=== PATIENT | female | born 1990 | race Caucasian/White ===

== ENCOUNTER 2017-02-07 18:26 | Emergency (ER) | payer OTHER ==
[~2017-02-07] VITALS: Ht 160 cm; Wt 52.2 kg
[~2017-02-07 18:26] MED LIST: CITALOPRAM HBR20 MG PO; EXCEDRIN MIGRA1 EAC2 PO; GABAPENTIN300 MG PO
[2017-02-07] MEDS ORDERED: KEFLEX500 MG PO (21:23)
[2017-02-07] MEDS ORDERED: TRAMADOL HCL50 MG PO (21:23)
== END 2017-02-07 22:07 | disposition home or self-care (01) ==
LOC: ED 18:26
DX: N12 Tubulo-interstitial nephritis, not specified as acute or chronic (principal); Z88.5 Allergy status to narcotic agent
CPT/HCPCS: 74177; 80053; 81001; 83690; 84703; 85025; 87077; 87088; 87186; 96361; 96374; 96375; 99284; J0696; J1170; J2405; J7030; Q9967

== ENCOUNTER 2017-12-22 22:58 | Inpatient (IN) | payer OTHER ==
[~2017-12-22] VITALS: Ht 160 cm; Wt 70.0 kg
[~2017-12-22 22:58] MED LIST changes: +KEFLEX500 MG PO; +TRAMADOL HCL50 MG PO
[2017-12-23] MEDS ORDERED: BUSPIRONE HCL5 GM PO (00:12)
--- NOTE | 2017-12-23 07:45 | PR ---
[facility] [address] [facility] [place], [place] [address] Signed Progress Notes IP Datetime Report Generated by SARKIS: 12/23/2017 07:45 PROGRESS NOTES: [id number] Impression: Normal progression of labor; Reassuring heart rate Procedures: Sterile Vag Exam Plan: Continue present management; Anesthesia consult VITAL SIGNS: [id number] Vital Signs: Reviewed; Within Normal Limits EXAM: [id number] Dilatation: 4.0 Effacement: 90 Station: -2 Uterine Contractions: q 1 to 4 min MEMBRANES: [id number] Membrane Status: Ruptured Amniotic Fluid Color: Clear Comments: Progressing and becoming more uncomfortable. Epidural requested. Fetus A: [id number] FHR Baseline: 140 Variability: Moderate 6-25bpm Accelerations: 10X10 Decelerations: Early; Variable FHR Category: Category II Presentation: Vertex Comments on Fetus A: overall reassuring but will continue close observation Fetus B: [id number] Signing Physician: Yumiko Pickering MD Copies: ~ *Electronically Signed* 12/23/17 0745 YUMIKO PICKERING MD PATIENT NAME: JH RODRIGUEZ PROGRESS NOTE DATE OF : [birth year] PHYSICIAN: YUMIKO PICKERING MD RPT #: [id number] REPORT IS CONFIDENTIAL AND NOT TO BE RELEASED WITHOUT AUTHORIZATION
--- NOTE | 2017-12-23 11:40 | PR ---
[facility] [address] [facility] [place], [place] [address] Signed Progress Notes IP Datetime Report Generated by SARKIS: 12/23/2017 11:40 PROGRESS NOTES: [id number] Impression: Normal progression of labor Procedures: Sterile Vag Exam Plan: Continue present management VITAL SIGNS: [id number] Vital Signs: Reviewed; Within Normal Limits EXAM: [id number] Dilatation: 5.0 Effacement: 90 Station: -2 Uterine Contractions: q 2 to 5 min MEMBRANES: [id number] Membrane Status: Ruptured Amniotic Fluid Color: Clear Comments: Comfortable after 2nd epidural. Progressing. Will continue. Fetus A: [id number] FHR Baseline: 145 Variability: Moderate 6-25bpm Accelerations: 10X10 Decelerations: Early; Variable FHR Category: Category II Presentation: Vertex Comments on Fetus A: overall reassuring but will continue close observation Fetus B: [id number] Signing Physician: Yumiko iPckering MD Copies: ~ *Electronically Signed* 12/23/17 1140 YUMIKO PICKERING MD PATIENT NAME: JH RODRIGUEZ PROGRESS NOTE DATE OF : [birth year] PHYSICIAN: YUMIKO PICKERING MD RPT #: [id number] REPORT IS CONFIDENTIAL AND NOT TO BE RELEASED WITHOUT AUTHORIZATION
--- NOTE | 2017-12-24 08:34 | PR ---
[facility] [address] [facility] [place], [place] [address] Signed PP Progress Notes Datetime Report Generated by CPN: 12/24/2017 08:34 SUBJECTIVE: [id number] Pain: Within normal limits Vital Signs: [id number] Vital Signs: Reviewed; Within Normal Limits EXAM: [id number] Cardiovascular: Not Done Respiratory: Not Done Abdomen/Uterus: Abnormal Lochia: Normal Vulva/Perineum: Not Done Breasts: Not Done CVA Tenderness: Not Done Extremities: Normal Incision: Not Applicable Progress: Normal Exam Comments: Fundus firm, NT @ U-1. H/H 12.3/37.7, WBC 22.1, plat 187k IMPRESSION/PLAN/PROCEDURES: [id number] Impression: Normal progression Plan: Continue present management Progress Notes: Doing well. Will continue present regimen. Signing Physician: Yumiko Pickering MD Copies: ~ *Electronically Signed* 12/24/17 0834 YUMIKO PICKERING MD PATIENT NAME: JH RODRIGUEZ PROGRESS NOTE DATE OF : [birth year] PHYSICIAN: YUMIKO PICKERING MD RPT #: [id number] REPORT IS CONFIDENTIAL AND NOT TO BE RELEASED WITHOUT AUTHORIZATION
--- NOTE | 2017-12-25 08:25 | PR ---
[facility] [address] [facility] [place], [place] [address] Signed PP Progress Notes Datetime Report Generated by CPN: 12/25/2017 08:25 SUBJECTIVE: [id number] Pain: Within normal limits Vital Signs: [id number] Vital Signs: Reviewed; Within Normal Limits EXAM: [id number] Cardiovascular: Not Done Respiratory: Not Done Abdomen/Uterus: Abnormal Lochia: Normal Vulva/Perineum: Not Done Breasts: Not Done CVA Tenderness: Not Done Extremities: Normal Incision: Not Applicable Progress: Normal Exam Comments: Fundus firm, NT @ U-1. IMPRESSION/PLAN/PROCEDURES: [id number] Impression: Normal progression Plan: Discharge Procedures: Rhogam Progress Notes: Doing well. She is ready for D/C. Signing Physician: Yumiko Pickering MD Copies: ~ *Electronically Signed* 12/25/17824 YUMIKO PICKERING MD PATIENT NAME: JH RODRIGUEZ PROGRESS NOTE DATE OF : 91 PHYSICIAN: YUMIKO PICKERING MD RPT #: [id number] REPORT IS CONFIDENTIAL AND NOT TO BE RELEASED WITHOUT AUTHORIZATION
== END 2017-12-25 10:50 | disposition home or self-care (01) | DRG 775 ==
LOC: FBCO 22:58 → FBC 12-23 03:07
PROVIDERS: ADMIT Obstetrics & Gynecology
PROC: 10E0XZZ Delivery of Products of Conception, External Approach (ICD-10-PCS; principal; 2017-12-23)
PROC: 0UQMXZZ Repair Vulva, External Approach (ICD-10-PCS; 2017-12-23)
PROC: 0UQGXZZ Repair Vagina, External Approach (ICD-10-PCS; 2017-12-23)
DX: O76 Abnormality in fetal heart rate and rhythm complicating labor and delivery (principal); O71.4 Obstetric high vaginal laceration alone; Z3A.40 40 weeks gestation of pregnancy; Z37.0 Single live birth; O71.82 Other specified trauma to perineum and vulva; O26.893 Other specified pregnancy related conditions, third trimester; Z67.91 Unspecified blood type, Rh negative
CPT/HCPCS: 01960; 59025; 83030; 85027; 86850; 86900; 86901; 96361; 99213; J2550; J2590; J2790; J3010; J7120

== ENCOUNTER 2020-09-01 10:49 | Emergency (ER) | payer OTHER ==
[~2020-09-01] VITALS: Ht 160 cm; Wt 69.4 kg
[~2020-09-01 10:49] MED LIST changes: +BUSPIRONE HCL5 GM PO
[2020-09-01] MEDS ORDERED: HEMAX TABLET1 EACH PO (11:08)
== END 2020-09-01 13:45 | disposition home or self-care (01) ==
LOC: ED 10:49
DX: O20.9 Hemorrhage in early pregnancy, unspecified (principal); Z3A.01 Less than 8 weeks gestation of pregnancy; Z87.891 Personal history of nicotine dependence; Z88.5 Allergy status to narcotic agent
CPT/HCPCS: 76801; 76817; 80053; 81001; 84702; 84703; 85025; 99284-25; J7030

== ENCOUNTER 2021-06-09 05:10 | Inpatient (IN) | payer OTHER ==
[~2021-06-09] VITALS: Ht 160 cm; Wt 73.9 kg
[~2021-06-09 05:10] MED LIST changes: +HEMAX TABLET1 EACH PO
--- NOTE | 2021-06-09 05:43 | NUR ---
IN-HOUSE COVID SWAB DONE TO BOTH NARES.
--- NOTE | 2021-06-09 10:06 | PR ---
[facility] [address] [facility] [place], [place] [address] Signed Progress Notes IP Datetime Report Generated by CPN: 06/09/2021 10:06 PROGRESS NOTES: [id number] Impression: Reassuring Heart Rate Procedures: Scalp Electrode Plan: Continue Present Management VITAL SIGNS: [id number] Vital Signs: Reviewed; Within Normal Limits EXAM: [id number] Dilatation: 3.0 Effacement: 70 Station: -2 Contractions: rare MEMBRANES: [id number] Membranes Status: Ruptured Comments: Pt doing well, comfortable with epidural, feeling pressure but no pain with contractions FHR tracing broken, FSE placed without difficulty with pt's consent Discussed may possibly need IUPC for titration of pitocin, pt agreeable if necessary. Continue with pitocin FETUS A: [id number] FHR Baseline: 125 Variability: Moderate 6-25bpm Accelerations: None FHR Category: Category I Presentation: Vertex Comments on Fetus A: No evidence of acidemia FETUS B: [id number] Signing Physician: Matthew Delvalle DO Copies: ~ *Electronically Signed* 06/09/21 1006 MATTHEW DELVALLE DO PATIENT NAME: MEDGIN,JH RENNEE PROGRESS NOTE DATE OF : 89 PHYSICIAN: MATTHEW DELVALLE DO RPT #: [id number] REPORT IS CONFIDENTIAL AND NOT TO BE RELEASED WITHOUT AUTHORIZATION
--- NOTE | 2021-06-09 15:04 | PR ---
[facility] [address] [facility] [place], [place] [address] Signed Progress Notes IP Datetime Report Generated by CPN: 06/09/2021 15:04 PROGRESS NOTES: [id number] Impression: Reassuring Heart Rate Procedures: Intrauterine Pressure Catheter Plan: Continue Present Management VITAL SIGNS: [id number] Vital Signs: Reviewed; Within Normal Limits EXAM: [id number] Dilatation: 5.0 Effacement: 70 Station: -2 Contractions: rare MEMBRANES: [id number] Membranes Status: Ruptured Comments: Minimal progression, IUPC placed without difficulty Continue pitocin See anesthesia notes re: epidural and BP control Continue pain mgmt per lamp stack developer FETUS A: [id number] FHR Baseline: 125 Variability: Moderate 6-25bpm Accelerations: None FHR Category: Category I Presentation: Vertex Comments on Fetus A: No evidence of acidemia FETUS B: [id number] Signing Physician: Matthew Delvalle DO Copies: ~ *Electronically Signed* 06/09/21 1504 MATTHEW DELVALLE DO PATIENT NAME: JH RODRIGUEZ PROGRESS NOTE DATE OF : [birth year] PHYSICIAN: MATTHEW DELVALLE DO RPT #: [id number] REPORT IS CONFIDENTIAL AND NOT TO BE RELEASED WITHOUT AUTHORIZATION
--- NOTE | 2021-06-09 20:51 | PR ---
[facility] [address] [facility] [place], [place] [address] Signed Progress Notes IP Datetime Report Generated by CPN: 06/09/2021 20:51 PROGRESS NOTES: [id number] Impression: Normal Progression of Labor Procedures: Sterile Vag Exam Plan: Continue Present Management VITAL SIGNS: [id number] Vital Signs: Reviewed; Within Normal Limits EXAM: [id number] Dilatation: 8.0 Effacement: 90 Station: -2 Contractions: rare MEMBRANES: [id number] Membranes Status: Ruptured Comments: Progressing well with pitocin, continue Cx: 8.5, lip present only on pt's right side, reposition with peanut ball Comfortable with epidural since replaced by anesthesia FETUS A: [id number] FHR Baseline: 125 Variability: Moderate 6-25bpm Accelerations: None FHR Category: Category I Presentation: Vertex Comments on Fetus A: No evidence of acidemia FETUS B: [id number] Signing Physician: Matthew Delvalle DO Copies: ~ *Electronically Signed* 06/09/212050 MATTHEW DELVALLE DO PATIENT NAME: JH RODRIGUEZ PROGRESS NOTE DATE OF : [birth year] PHYSICIAN: MATTHEW DELVALLE DO RPT #: [id number] REPORT IS CONFIDENTIAL AND NOT TO BE RELEASED WITHOUT AUTHORIZATION
--- NOTE | 2021-06-10 07:33 | PR ---
[facility] [address] [facility] [place], [place] [address] Signed PP Progress Notes Datetime Report Generated by CPRufina: 06/10/2021 07:33 SUBJECTIVE: [id number] Pain: Within Normal Limits Nausea/Vomiting: Denies Flatus: Yes Vital Signs: [id number] Vital Signs: Reviewed; Within Normal Limits Cardiovascular: Normal Respiratory: Normal Abdomen/Uterus: Normal Lochia: Normal Breasts: Normal Extremities: Normal Progress: Normal Exam Comments: NAD, sitting up in bed RRR No dyspnea/ retractions Abd SNTND, FFBU Ext: trace edema, Neg Lauri's BL IMPRESSION/PLAN/PROCEDURES: [id number] Impression: Normal Progression Plan: Continue Present Management Procedures: Rhogam Progress Notes: Pt is a 30 yo PPD#1 s/p uncomplicated -seen and examined, as above -baby A positive, anticipate rhogam today -ambulating, voiding, tolerating regular diet -pain well controlled with orals -lochia light - without difficulty Anticipate DC to home tomorrow am Signing Physician: Matthew Delvalle DO Copies: *Electronically Signed* 06/10/21 0733 MATTHEW DELVALLE DO PATIENT NAME: JH RODRIGUEZ PROGRESS NOTE DATE OF : [birth year] PHYSICIAN: MATTHEW DELVALLE DO RPT #: [id number] REPORT IS CONFIDENTIAL AND NOT TO BE RELEASED WITHOUT AUTHORIZATION [address] [address] Signed ~ *Electronically Signed* 06/10/21 0733 MATTHEW DELVALLE DO PATIENT NAME: JH RODRIGUEZ PROGRESS NOTE DATE OF : [birth year] PHYSICIAN: MATTHEW DELVALLE DO RPT #: [id number] REPORT IS CONFIDENTIAL AND NOT TO BE RELEASED WITHOUT AUTHORIZATION
--- NOTE | 2021-06-11 09:01 | PR ---
[facility] [address] [place], [place] [address] Signed PP Progress Notes Datetime Report Generated by CPN: 06/11/2021 09:01 SUBJECTIVE: [id number] Pain: Within Normal Limits Nausea/Vomiting: Denies Flatus: Yes Bowel Movement: Yes Vital Signs: [id number] Vital Signs: Reviewed; Within Normal Limits Cardiovascular: Normal Respiratory: Normal Abdomen/Uterus: Normal Lochia: Normal Vulva/Perineum: Normal Breasts: Normal Extremities: Normal Progress: Abnormal Exam Comments: NAD, nursing baby No dyspnea/ retractions RRR Abd SNTND, FFBU Ext: trace edema, neg Lauri's BL IMPRESSION/PLAN/PROCEDURES: [id number] Impression: Normal Progression; Difficulties Other Impression: cluster feeding Plan: Continue Present Management Other Plans: outpatient consult Procedures: None Other Procedures: s/p Rhogam Progress Notes: Pt is a 30 yo PPD#2 s/p uncomplicated and EIOL -seen and examined, as above -pain well controlled with motrin, ambulating, voiding, +BM, tolerating regular diet, no dizziness/ lightheadedness -requesting DC to home this am, plan outpatient consult with Tess Garcia for cluster feeding -planning partner vasectomy for contraception Signing Physician: Matthew Delvalle DO *Electronically Signed* 06/11/21 0901 MATTHEW DELVALLE DO PATIENT NAME: JH RODRIGUEZ PROGRESS NOTE DATE OF : 91 PHYSICIAN: MATTHEW DELVALLE DO RPT #: [id number] REPORT IS CONFIDENTIAL AND NOT TO BE RELEASED WITHOUT AUTHORIZATION [facility] [address] [place] [id number] Signed Copies: ~ *Electronically Signed* 06/11/21 0901 MATTHEW DELVALLE DO PATIENT NAME: JH RODRIGUEZ PROGRESS NOTE DATE OF : 91 PHYSICIAN: MATTHEW DELVALLE DO RPT #: [id number] REPORT IS CONFIDENTIAL AND NOT TO BE RELEASED WITHOUT AUTHORIZATION
== END 2021-06-11 10:10 | disposition home or self-care (01) | DRG 807 ==
LOC: FBC 05:10
PROVIDERS: ADMIT Obstetrics & Gynecology; ATTEND Obstetrics & Gynecology
PROC: 10E0XZZ Delivery of Products of Conception, External Approach (ICD-10-PCS; principal; 2021-06-09)
PROC: 10907ZC Drainage of Amniotic Fluid, Therapeutic from Products of Conception, Via Natural or Artificial Opening (ICD-10-PCS; 2021-06-09)
PROC: 10H07YZ Insertion of Other Device into Products of Conception, Via Natural or Artificial Opening (ICD-10-PCS; 2021-06-09)
PROC: 10H073Z Insertion of Monitoring Electrode into Products of Conception, Via Natural or Artificial Opening (ICD-10-PCS; 2021-06-09)
PROC: 0UQMXZZ Repair Vulva, External Approach (ICD-10-PCS; 2021-06-09)
PROC: 3E0334Z Introduction of Serum, Toxoid and Vaccine into Peripheral Vein, Percutaneous Approach (ICD-10-PCS; 2021-06-10)
DX: O99.344 Other mental disorders complicating childbirth (principal); Z37.0 Single live birth; Z3A.39 39 weeks gestation of pregnancy; Z20.822 Contact with and (suspected) exposure to COVID-19; F41.9 Anxiety disorder, unspecified; F32.A Depression, unspecified; O70.0 First degree perineal laceration during delivery; Z23 Encounter for immunization; O26.893 Other specified pregnancy related conditions, third trimester; Z67.11 Type A blood, Rh negative; Z79.899 Other long term (current) drug therapy; Z88.5 Allergy status to narcotic agent; Z88.2 Allergy status to sulfonamides
CPT/HCPCS: 01960; 36415; 83030; 85027; 86850; 86870; 86900; 86901; A9270; C9803; J2590; J2790; J2795; J3010; U0003